=== PATIENT | male | born 1985 | race Caucasian/White ===

== ENCOUNTER 2021-04-07 14:51 | Emergency (ER) | payer OTHER ==
[~2021-04-07] VITALS: Ht 190.5 cm; Wt 45.5 kg
[2021-04-07 17:04] LABS: BASOPHILS % (AUTO) 0.5 % (0.0-2.0); EOSINOPHILS % (AUTO) 3.2 % (1.0-6.0); HEMATOCRIT 36.9 % (41-53); HEMOGLOBIN 12.5 g/dL (13.5-17.5); LYMPHOCYTES # (AUTO) 1.9 K/uL (1.0-4.8); MEAN CORPUSCULAR HEMOGLOBIN 30.1 pg (26.0-34.0); MEAN CORPUSCULAR HGB CONC 33.8 G/dL (31.0-37.0); MEAN CORPUSCULAR VOLUME 89 fL (80-100); MONOCYTES # (AUTO) 0.5 K/uL (0.1-1.0); MONOCYTES % (AUTO) 5.9 % (2.0-9.0); NEUTROPHILS # (AUTO) 6.2 K/uL (1.8-7.7); NEUTROPHILS % (AUTO) 69.4 % (40.0-70.0); PLATELET COUNT (AUTO) 268 K/uL (150-450); RED BLOOD CELL COUNT(AUTO) 4.15 MIL/uL (4.50-5.90)
[2021-04-07 17:17] LABS: ANION GAP 10 mmol/L (8-16); CALCIUM, TOTAL 8.8 mg/dL (8.8-10.5); CARBON DIOXIDE 25 mmol/L (22-29); CHLORIDE 102 mmol/L (98-107); CREATININE 0.86 mg/dL (0.60-1.30); GLOMERULAR FILTR. RATE CALC > 60 mL/min (>60); GLUCOSE,RANDOM 85 mg/dL (70-110); POTASSIUM 3.8 mmol/L (3.5-5.1); SODIUM SERUM 137 mmol/L (136-145); UREA NITROGEN, BLOOD 14 mg/dL (7-18)
[2021-04-07 17:22] LABS: ALANINE AMINOTRANSFERASE 18 U/L (12-78); ALBUMIN 3.6 g/dL (3.4-5.0); ALKALINE PHOSPHATASE 75 U/L (46-116); ASPARTATE AMINOTRANSFERASE 14 U/L (15-37); BILIRUBIN,TOTAL 0.5 mg/dL (0.1-1.0); TOTAL PROTEIN, SERUM 7.2 g/dL (6.4-8.2)
[2021-04-07 17:25] LABS: AMPHET/METH SCREEN,URINE NEGATIVE (NEGATIVE); BARBITURATE SCREEN, URINE NEGATIVE (NEGATIVE); BENZODIAZEPINES SCREEN,URINE NEGATIVE (NEGATIVE); CANNABINOID SCREEN,URINE POSITIVE (NEGATIVE); COCAINE SCREEN,URINE NEGATIVE (NEGATIVE); METHADONE SCREEN, URINE NEGATIVE (NEGATIVE); OPIATE SCREEN,URINE NEGATIVE (NEGATIVE)
[2021-04-07 17:29] LABS: PHENCYCLIDINE SCREEN,URINE NEGATIVE (NEGATIVE)
[2021-04-07 18:35] LABS: COVID AG,FIA SOURCE NASOPHARYNGEAL
[2021-04-07 19:34] VITALS: BP 116/74
[2021-04-28] MEDS ORDERED: HYDR-4031 PO (21:27)
== END 2021-04-07 22:56 | disposition home or self-care (01) ==
LOC: EMS 14:56
DX: F32.9 Major depressive disorder, single episode, unspecified (principal); F12.90 Cannabis use, unspecified, uncomplicated; F17.290 Nicotine dependence, other tobacco product, uncomplicated; Z20.822 Contact with and (suspected) exposure to COVID-19
CPT/HCPCS: 36415; 80053; 80307; 85025; 87426; 99284; G0480

== ENCOUNTER 2021-04-07 21:30 | Outpatient (CLI) | payer OTHER, MEDICAID ==
[2021-04-07 21:15] VITALS: BP 118/80
[2021-04-07 21:45] VITALS: BP 118/80
[2021-04-07] MEDS ORDERED: HydrOXYzine PAMOATE 50 MG CAPSULE PO PRN (22:15)
[2021-04-07] MEDS ORDERED: TraZODone HCL 50 MG TABLET PO SCH (22:15)
[2021-04-08] MEDS ORDERED: ESCITALOPRAM OXALATE 20 MG TABLET PO SCH (09:00)
[2021-04-08] MEDS ORDERED: BusPIRone HCL 5 MG TABLET PO SCH (09:00)
[2021-04-08] MEDS ORDERED: ESCITALOPRAM OXALATE 10 MG TABLET ONE (09:44)
[2021-04-08 10:07] VITALS: BP 131/74
[2021-04-08] MEDS ORDERED: PREGABALIN 50 MG CAPSULE PO SCH (13:00)
[2021-04-08] MEDS ORDERED: LURASIDONE HCL 20 MG TABLET PO SCH (17:00)
== END 2021-04-08 11:00 | disposition home or self-care (01) ==
LOC: CSU 21:30
PROVIDERS: ATTEND Psychiatry & Neurology Psychiatry
DX: F31.76 Bipolar disorder, in full remission, most recent episode depressed (principal); F31.9 Bipolar disorder, unspecified; F39 Unspecified mood [affective] disorder; R45.851 Suicidal ideations
CPT/HCPCS: 90792; Z7610

== ENCOUNTER 2021-04-28 21:17 | Inpatient (IN) | payer MEDICARE, OTHER ==
[~2021-04-28] VITALS: Ht 190.5 cm; Wt 85.7 kg
[2021-04-28] MEDS ORDERED: HYDR-4808 PO (21:27)
[2021-04-28] MEDS ORDERED: MELA1TAB21 PO (21:27)
[2021-04-28 22:45] LABS: AMPHET/METH SCREEN,URINE NEGATIVE (NEGATIVE); BARBITURATE SCREEN, URINE NEGATIVE (NEGATIVE); BENZODIAZEPINES SCREEN,URINE NEGATIVE (NEGATIVE); CANNABINOID SCREEN,URINE POSITIVE (NEGATIVE); COCAINE SCREEN,URINE NEGATIVE (NEGATIVE); METHADONE SCREEN, URINE NEGATIVE (NEGATIVE); OPIATE SCREEN,URINE NEGATIVE (NEGATIVE); PHENCYCLIDINE SCREEN,URINE NEGATIVE (NEGATIVE)
[2021-04-29] MEDS ORDERED: ZOLPIDEM TARTRATE 10 MG TABLET PO PRN (01:00)
[2021-04-29] MEDS ORDERED: LORazepam 2 MG TABLET PO PRN (01:00)
[2021-04-29 01:07] LABS: BASOPHILS % (AUTO) 0.8 % (0.0-2.0); EOSINOPHILS % (AUTO) 4.2 % (1.0-6.0); HEMATOCRIT 42.6 % (41-53); HEMOGLOBIN 14.3 g/dL (13.5-17.5); LYMPHOCYTES # (AUTO) 3.4 K/uL (1.0-4.8); LYMPHOCYTES % (AUTO) 34.3 % (22.0-44.0); MEAN CORPUSCULAR HEMOGLOBIN 30.1 pg (26.0-34.0); MEAN CORPUSCULAR HGB CONC 33.6 G/dL (31.0-37.0); MEAN CORPUSCULAR VOLUME 89 fL (80-100); MONOCYTES # (AUTO) 0.9 K/uL (0.1-1.0); MONOCYTES % (AUTO) 9.2 % (2.0-9.0); NEUTROPHILS % (AUTO) 51.5 % (40.0-70.0); PLATELET COUNT (AUTO) 351 K/uL (150-450); RED BLOOD CELL COUNT(AUTO) 4.76 MIL/uL (4.50-5.90); RED CELL DISTRIBUTION WIDTH 15.3 % (11.5-14.5)
[2021-04-29 01:09] LABS: ANION GAP 12 mmol/L (8-16); CALCIUM, TOTAL 9.3 mg/dL (8.8-10.5); CARBON DIOXIDE 27 mmol/L (22-29); CHLORIDE 100 mmol/L (98-107); CREATININE 0.95 mg/dL (0.60-1.30); GLOMERULAR FILTR. RATE CALC > 60 mL/min (>60); GLUCOSE,RANDOM 98 mg/dL (70-110); POTASSIUM 3.6 mmol/L (3.5-5.1); SODIUM SERUM 139 mmol/L (136-145); UREA NITROGEN, BLOOD 16 mg/dL (7-18)
[2021-04-29 01:15] LABS: ALANINE AMINOTRANSFERASE 20 U/L (12-78); ALBUMIN 4.3 g/dL (3.4-5.0); ALKALINE PHOSPHATASE 86 U/L (46-116); ASPARTATE AMINOTRANSFERASE 19 U/L (15-37); BILIRUBIN,TOTAL 0.4 mg/dL (0.1-1.0); TOTAL PROTEIN, SERUM 8.3 g/dL (6.4-8.2)
[2021-04-29 01:25] LABS: COVID AG,FIA SOURCE NASOPHARYNGEAL
[2021-04-29 02:56] LABS: SALICYLATE < 2.8 mg/dL (2.8-20.0)
[2021-04-29 03:08] LABS: ACETAMINOPHEN < 2 mcg/mL (10-30)
[2021-04-29 03:17] LABS: APPEARANCE,URINE TURBID (CLEAR); GLUCOSE, URINE (UA) NEGATIVE (NEGATIVE); KETONES,URINE TRACE mg/dL (NEGATIVE); LEUKOCYTE ESTERASE ,URINE NEGATIVE (NEGATIVE); NITRATE,URINE NEGATIVE (NEGATIVE); OCCULT BLOOD,URINE NEGATIVE (NEGATIVE); PROTEIN,URINE NEGATIVE (NEGATIVE); UROBILINOGEN,URINE 0.2 mg/dL (<=1.0)
[2021-04-29 03:20] LABS: BILIRUBIN,URINE PRELIM. POSITIVE (NEGATIVE)
[2021-04-29 03:22] LABS: BACTERIA,URINE Moderate /HPF (None Seen); RBC,URINE 0-2 /HPF (0-2); WBC,URINE 0-2 /HPF (0-5)
[2021-04-29 10:51] VITALS: BP 121/70
[2021-04-29] MEDS: NICOTINE 14 MG/24 HOUR PATCH TD SCH (13:15)
[2021-04-29] MEDS ORDERED: CloNIDine HCL 0.1 MG TABLET PO PRN (14:30)
[2021-04-29] MEDS ORDERED: GuaiFENesin/D-METHORPHAN [SUGAR-FREE] 200-20MG/10 ML SYRUP UDCUP PO PRN (14:30)
[2021-04-29] MEDS ORDERED: MAGNESIUM HYDROXIDE SUSPENSION 30 ML UDCUP PO PRN (14:30)
[2021-04-29] MEDS ORDERED: DOCUSATE SODIUM 100 MG CAPSULE PO PRN (14:30)
[2021-04-29] MEDS ORDERED: MAG HYDROX/AL HYDROX/SIMETH ES 30 ML SUSPENSION UDCUP PO PRN (14:30)
[2021-04-29] MEDS ORDERED: ACETAMINOPHEN 325 MG TABLET PO PRN (14:30)
[2021-04-29] MEDS ORDERED: PETROLATUM,WHITE 28 GM JELLY TP PRN (14:30)
[2021-04-29] MEDS ORDERED: NICOTINE 14 MG/24 HOUR PATCH TD PRN (14:30)
[2021-04-29] MEDS ORDERED: ALBUTEROL SULFATE HFA 90 MCG/PUFF 8 GM INHALER IH PRN (14:30)
[2021-04-29] MEDS ORDERED: LOPERAMIDE HCL 2 MG CAPSULE PO PRN (14:30)
[2021-04-29] MEDS ORDERED: IBUPROFEN 400 MG TABLET PO PRN (14:30)
[2021-04-29] MEDS ORDERED: ONDANSETRON HCL 4 MG TABLET PO PRN (14:30)
[2021-04-29 16:13] VITALS: BP 118/78
[2021-04-29] MEDS: ARIPiprazole 10 MG TABLET PO SCH (17:22)
[2021-04-29] MEDS: TraZODone HCL 50 MG TABLET PO SCH (20:33)
[2021-04-30 06:46] LABS: CHOL/HDL RATIO 3.7 (4.2-7.3)
[2021-04-30 08:45] VITALS: BP 97/61
[2021-04-30] MEDS: ARIPiprazole 10 MG TABLET PO SCH (09:17)
[2021-04-30] MEDS: NICOTINE 14 MG/24 HOUR PATCH TD SCH (09:18)
[2021-04-30 16:40] VITALS: BP 129/83
[2021-04-30] MEDS: TraZODone HCL 50 MG TABLET PO SCH (20:30)
[2021-04-30] MEDS: HALOPERIDOL 5 MG TABLET PO PRN (20:31)
[2021-05-01] MEDS: ARIPiprazole 10 MG TABLET PO SCH (08:50)
[2021-05-01] MEDS: NICOTINE 14 MG/24 HOUR PATCH TD SCH (08:54)
[2021-05-01 09:16] VITALS: BP 99/60
[2021-05-01] MEDS ORDERED: TRAZ-252 PO (13:36)
[2021-05-01] MEDS ORDERED: ARIP10TA38 PO (13:36)
[2021-05-01 16:00] VITALS: BP 118/73
[2021-05-01] MEDS: HALOPERIDOL 5 MG TABLET PO PRN (16:56)
[2021-05-01] MEDS: TraZODone HCL 50 MG TABLET PO SCH (21:00)
[2021-05-02] MEDS: ARIPiprazole 10 MG TABLET PO SCH (08:12)
[2021-05-02 08:33] VITALS: BP 100/59
[2021-05-02] MEDS: NICOTINE 14 MG/24 HOUR PATCH TD SCH (08:45)
== END 2021-05-02 14:00 | disposition home or self-care (01) | DRG 885 ==
LOC: EMS 21:17 → 3EX 04-29 06:00
PROVIDERS: ADMIT Psychiatry & Neurology Child & Adolescent Psychiatry; ATTEND Psychiatry & Neurology Child & Adolescent Psychiatry
DX: F31.4 Bipolar disorder, current episode depressed, severe, without psychotic features (principal); R45.851 Suicidal ideations; F12.10 Cannabis abuse, uncomplicated; Z20.822 Contact with and (suspected) exposure to COVID-19; F41.9 Anxiety disorder, unspecified; F17.210 Nicotine dependence, cigarettes, uncomplicated; R56.9 Unspecified convulsions; Z88.0 Allergy status to penicillin; Z79.899 Other long term (current) drug therapy; Z91.013 Allergy to seafood
CPT/HCPCS: 80053; 80061; 81001; 85025; 87086; 99285; G0378; G0480; G0481